=== PATIENT | male | born 1975 | race American Indian/Alaskan Native ===

== ENCOUNTER 2017-05-24 14:54 | Outpatient (CLI) | payer BC ==
--- NOTE | 2017-05-25 07:18 | XRay Report ---
Left knee 2 views: History: Knee pain. Findings: Marked narrowing of medial compartment of knee joint. Sclerotic articular surfaces with osteophyte suggesting degenerative changes. Degenerative changes also noted in the patellofemoral compartment. Suspected minimal fluid in the suprapatellar bursa. Impression: Degenerative changes medial and patellofemoral compartment knee joint.
--- NOTE | 2017-05-26 08:56 | Magnetic Resonance Report ---
MR LOWER EXTREMITY JOINT LEFT WITHOUT CONTRAST HISTORY: Left knee pain. TECHNIQUE: Multisequence, multiplanar MRI with and without fat suppression. COMPARISON: Left knee films dated 05/24/17. FINDINGS: Small joint effusion and tiny popliteal cyst measuring up to 1 cm are noted. The medial compartment of the left knee is slightly abnormal. There appears to be cartilage thinning overlying the medial femoral condyle. There is mild articular surface sclerosis of the medial femoral condyle as well. No unstable osteochondral fragment. The lateral compartment and patellofemoral space are within normal limits. The medial and lateral menisci are unremarkable. The ACL, PCL, MCL, LCL complex and extensor complex are intact. No ligamentous injury. No evidence for bone lesion or fracture. IMPRESSION: Abnormal medial compartment of the left knee as described above. This presumably represents early osteoarthritic changes. See above. Small joint effusion and tiny popliteal cyst. No meniscal or ligamentous abnormality detected.
== END 2017-05-24 14:55 | disposition home or self-care (01) ==
LOC: MRI 14:54
PROVIDERS: ATTEND Internal Medicine
DX: M17.12 Unilateral primary osteoarthritis, left knee (principal); M71.22 Synovial cyst of popliteal space [Baker], left knee
CPT/HCPCS: 73721